=== PATIENT | female | born 1965 | race Caucasian/White ===

== ENCOUNTER 2018-08-15 07:44 | Emergency (ER) | payer BC, OTHER ==
[2018-08-15] MEDS ORDERED: Ondansetron HCl/PF 4 MG/2 ML Vial ONE ×2 (08:17→08:58)
[2018-08-15 08:36] LABS: ALT (SGPT) 27 U/L (8-55); AST (SGOT) 15 U/L (5-34); Albumin 4.1 g/dL (3.5-5.0); Alkaline Phosphatase 91 U/L (40-150); Anion Gap 15 mmol/L (10-20); BUN (Urea Nitrogen) 7 mg/dL (9.8-20.1); Bilirubin, Total Less than 0.2 mg/dL (0.2-1.2); Calc. Creatinine Clearance 0 mL/min (70-130); Calcium 9.6 mg/dL (7.8-10.44); Carbon Dioxide 25 mmol/L (22-29); Chloride 101 mmol/L (98-107); Estimated GFR-MDRD 90; Globulin 2.9 g/dL (2.4-3.5); Glucose 134 mg/dL (70-105); Potassium 3.4 mmol/L (3.5-5.1); Sodium 138 mmol/L (136-145)
[2018-08-15 08:39] LABS: Clarity Slightly Cloudy (Clear); Leukocyte Small (Negative); Nitrite Negative (Negative); pH, Urine 6.5 (5.0-9.0)
[2018-08-15 08:40] LABS: Bacteria/HPF 2+ HPF (None Seen); Bilirubin Small (Negative); Blood, Urine Trace (Negative); Crystals/HPF 1+ AMORPH URATES HPF (Negative); Glucose, Urine (Dipstick) Negative (Negative); Protein, Urine (Dipstick) Trace mg/dL (Neg-Trace); RBC/HPF 0-3 HPF (0-3); Squamous Epithelial 0-3 HPF (0-3); Urobilinogen 0.2 mg/dL (0.2-1.0); WBC/HPF 0-3 HPF (0-3)
[2018-08-15 08:41] LABS: Other Microscopic Description MODERATE MUCOUS
[2018-08-15 08:43] LABS: #Basophils 0.2 thou/uL (0.0-0.2); #Eosinphils 0.2 thou/uL (0.0-0.7); #Lymphocytes 1.5 thou/uL (1.20-3.40); #Monocytes 1.7 thou/uL (0.11-0.59); %Basophils 1.2 % (0.0-1.0); %Eosinophils 1.4 % (0.0-10.0); %Lymphocytes 10.2 % (21.0-51.0); %Monocytes 11.6 % (0.0-10.0); %Neutrophils 75.6 % (42.0-75.0); Hemoglobin 15.5 g/dL (12.0-16.0); Mean Corpuscular HGB CONC 33.5 g/dL (32.0-36.0); Mean Corpuscular Hemoglobin 30.2 pg (27.0-31.0); Mean Corpuscular Volume 90.3 fL (78.0-98.0); Mean Platelet Volume 8.6 fL (7.4-10.4); Platelet Count 389 thou/uL (130-400); RBC Distribution Width 11.5 % (11.5-14.5); Red Blood Cell (RBC) Count 5.12 mill/uL (4.20-5.40); White Blood Cell (WBC) Count 14.6 thou/uL (4.8-10.8)
[2018-08-15] MEDS ORDERED: Iopamidol 370 76% 100 ML VIAL ONE (09:00)
[2018-08-15 10:31] LABS: Lipase Less than 4 U/L (8-78)
--- NOTE | 2018-08-15 20:02 | CT ---
CT ABDOMEN AND PELVIS WITH CONTRAST 08/15/[address] of the abdomen and pelvis was performed using IV contrast only. Oral contrast was deferred by request. Axial slices were acquired, followed by coronal and sagittal reconstructions. The lung bases are clear except for some minimal basilar scarring, mainly on the right. The liver, sp lisa, pancreas, gallbladder, adrenal glands, kidneys, and abdominal aorta showed no acute findings. 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 The main finding on this study is multiple fluid filled loops of colon. None of the loops are tremend ously dilated, nor do any have particularly thick [place]. This is a nonspecific finding sometimes seen in enteritis. There are no inflammatory changes around bowel. The small bowel shows no dilation. CT of the pelvis was remarkable only for the fluid filled loops of colon. No pelvic masses, free flui d, or masses were seen. IMPRESSION: Multiple fluid filled loops of colon without other inflammatory changes. Possibility of enteritis is raised. POS: HOME
== END 2018-08-15 09:45 | disposition home or self-care (01) ==
LOC: BURERS 07:44
DX: K52.9 Noninfective gastroenteritis and colitis, unspecified (principal); E03.9 Hypothyroidism, unspecified; F41.9 Anxiety disorder, unspecified; F32.9 Major depressive disorder, single episode, unspecified; Z79.899 Other long term (current) drug therapy
CPT/HCPCS: 74177; 80053; 81003; 81015; 83605; 83690; 85025; 96361; 96374; 96376; A4216; J2405

== ENCOUNTER 2018-09-23 17:06 | Emergency (ER) | payer BC, OTHER ==
[2018-09-23] MEDS ORDERED: Acetaminophen/Codeine 30-300mg Tablet ONE (17:18)
[2018-09-23] MEDS ORDERED: Ketorolac Tromethamine 60 MG/2 ML VIAL ONE (17:18)
--- NOTE | 2018-09-23 19:16 | RAD ---
AP VIEW CHEST: AP AND OBLIQUE VIEWS RIGHT RIBS: HISTORY: Fall with right-sided pain. FINDINGS: Radiograph of chest, as well as right rib series, demonstrates a mildly displaced right sixth rib fra cture. No evidence of associated hemothorax or pneumothorax is seen. No other acute intrathoracic abnormalities noted. IMPRESSION: Acute right sixth rib fracture. POS: [facility]
== END 2018-09-23 17:52 | disposition home or self-care (01) ==
LOC: BURERS 17:06
DX: S22.31XA Fracture of one rib, right side, initial encounter for closed fracture (principal); F32.9 Major depressive disorder, single episode, unspecified; F41.9 Anxiety disorder, unspecified; Z79.899 Other long term (current) drug therapy; W01.0XXA Fall on same level from slipping, tripping and stumbling without subsequent striking against object, initial encounter
CPT/HCPCS: 96372; J1885

== ENCOUNTER 2019-04-22 05:35 | Emergency (ER) | payer BC, OTHER ==
[2019-04-22] MEDS ORDERED: Fluorescein Opthalmic Strip ONE (05:45)
[2019-04-22] MEDS ORDERED: Tobramycin Sulfate 0.3% Ophth Susp 5 ml Bottle ONE ×2 (06:02→06:04)
== END 2019-04-22 06:14 | disposition home or self-care (01) ==
LOC: BURERS 05:35
DX: H10.9 Unspecified conjunctivitis (principal); F41.9 Anxiety disorder, unspecified; F32.9 Major depressive disorder, single episode, unspecified; E03.9 Hypothyroidism, unspecified; Z79.899 Other long term (current) drug therapy
CPT/HCPCS: 99283

== ENCOUNTER 2020-04-06 01:44 | Emergency (ER) | payer BC, OTHER ==
[2020-04-06 02:30] LABS: Bilirubin Negative (Negative); Blood, Urine Negative (Negative); Clarity Slightly Cloudy (Clear); Glucose, Urine (Dipstick) Negative (Negative); Leukocyte Negative (Negative); Nitrite Negative (Negative); Protein, Urine (Dipstick) Negative (Neg-Trace); Urobilinogen 0.2 mg/dL (Less than 2)
[2020-04-06 02:37] LABS: Pregnancy Test - Urine (BHCG) Negative (Negative); Pregu Control Background? CLEAR/WHITE (CLR/WHITE); Pregu Control Bar Appear? YES (CONTROL BAR)
== END 2020-04-06 02:45 | disposition home or self-care (01) ==
LOC: BURERS 01:44
DX: R33.9 Retention of urine, unspecified (principal); F41.9 Anxiety disorder, unspecified; E03.9 Hypothyroidism, unspecified; F32.9 Major depressive disorder, single episode, unspecified; Z79.899 Other long term (current) drug therapy
CPT/HCPCS: 51702; 81003; 81025; 87086

== ENCOUNTER 2020-04-06 11:38 | Emergency (ER) | payer BC, OTHER | END 2020-04-06 12:03 | disposition home or self-care (01) | LOC: BURERS 11:38 | DX: Z43.6 Encounter for attention to other artificial openings of urinary tract (principal); F41.9 Anxiety disorder, unspecified; E03.9 Hypothyroidism, unspecified; F32.9 Major depressive disorder, single episode, unspecified; Z79.899 Other long term (current) drug therapy | CPT/HCPCS: 99282 ==

== ENCOUNTER 2021-09-17 07:54 | Emergency (ER) | payer BC, OTHER | END 2021-09-17 08:24 | disposition home or self-care (01) | LOC: BURERS 07:54 | DX: S29.012A Strain of muscle and tendon of back wall of thorax, initial encounter (principal); S70.11XA Contusion of right thigh, initial encounter; E03.9 Hypothyroidism, unspecified; Z79.899 Other long term (current) drug therapy; V89.2XXA Person injured in unspecified motor-vehicle accident, traffic, initial encounter | CPT/HCPCS: 99283 ==

== ENCOUNTER 2022-04-03 22:12 | Emergency (ER) | payer BC, SELFPAY ==
[2022-04-04 00:18] LABS: Bilirubin Negative (Negative); Blood, Urine Negative (Negative); Clarity Clear (Clear); Glucose, Urine (Dipstick) Negative (Negative); Ketone, Urine 15 mg/dL (Negative); Leukocyte Negative (Negative); Nitrite Negative (Negative); Protein, Urine (Dipstick) Negative (Neg-Trace); Urobilinogen 0.2 mg/dL (Less than 2)
== END 2022-04-04 00:40 | disposition home or self-care (01) ==
LOC: BURERS 22:12
DX: N32.89 Other specified disorders of bladder (principal); E03.9 Hypothyroidism, unspecified; Z79.890 Hormone replacement therapy
CPT/HCPCS: 51701; 51798; 81003; 87086